=== PATIENT | male | born 1985 | race Caucasian/White ===

== ENCOUNTER 2018-05-22 09:27 | Emergency (ER) | payer BC ==
[2018-05-22 09:49] VITALS: BP 132/85
--- NOTE | 2018-05-22 10:44 | UC ---
Shoulder Pain HPI - HPI Summary HPI Summary: Pt presents with c/o right shoulder pain. 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 Pt states that yesterday that he slipped and grabbed door handle to truck and now has right shoulder pain. Pt states that he thinks that his right shoulder is "slipping again". - History of Current Complaint Chief Complaint: UCUpperExtremity Stated Complaint: RT SHOULDER PAIN Time Seen by Provider: 05/22/18 10:14 Hx Obtained From: Patient Onset/Duration: Sudden Onset, Lasting Days, Still Present Timing: Constant Severity Initially: Moderate Severity Currently: Moderate Location Of Pain: Is Discrete @ - right shoulder Pain Intensity: 6 Character: Dull, Aching Aggravating Factor(s): Movement Alleviating Factor(s): Nothing Associated Signs And Symptoms: Positive: Negative Related History: Dominant Hand Right, Other: - previous right shoulder surgery - Risk Factors Non-Orthopedic Risk Factor: Negative DVT Risk Factors: Negative Septic Arthritis Risk Factor: Negative - Allergies/Home Medications Allergies/Adverse Reactions: Allergies Allergy/AdvReac Type Severity Reaction Status Date / Time Tree Nuts Allergy Swelling Verified 05/22/18 09:45 Of Face,Lips,& Throat Home Medications: Home Medications NK [No Home Medications Reported] 05/22/18 [History Confirmed 05/22/18] PMH/Surg Hx/FS Hx/Imm Hx Previously Healthy: Yes - Surgical History Surgical History: Yes Surgery Procedure, Year, and Place: L5S1 Discecttomy, 2014, [place]; Right Shoulder, ~2002 - Family History Known Family History: Positive: Cardiac Disease - Social History Occupation: Employed Full-time Lives: With Family Alcohol Use: Daily Substance Use Type: None Smoking Status (MU): Former Smoker Length of Time of Smoking/Using Tobacco: 1 PPD x 7 Years Have You Smoked in the Last Year: No When Did the Patient Quit Smoking/Using Tobacco: ~2008 Review of Systems All Other Systems Reviewed And Are Negative: Yes Constitutional: Positive: Negative Skin: Positive: Negative Eyes: Positive: Negative ENT: Positive: Negative Respiratory: Positive: Negative Cardiovascular: Positive: Negative Gastrointestinal: Positive: Negative Genitourinary: Positive: Negative Motor: Positive: Decreased ROM - right shoulder Neurovascular: Positive: Negative Musculoskeletal: Positive: Arthralgia, Decreased ROM, Myalgia, Other: - generalized pain with movement. Neurological: Positive: Negative Psychological: Positive: Negative Is Patient Immunocompromised?: No Physical Exam - Summary Physical Exam Summary: Pt c/o generalized pain with movement, Additionally, right shoulder appeared to be lower than left. Pt not evaluated for scoliosis. Triage Information Reviewed: Yes Appearance: Pain Distress - with movement Vital Signs: Initial Vital Signs Temp 98.6 F 05/22/18 09:43 Pulse 98 05/22/18 09:43 Resp 18 05/22/18 09:43 BP 132/85 05/22/18 09:43 Pulse Ox 100 05/22/18 09:43 Vital Signs Reviewed: Yes Eye Exam: Normal ENT Exam: Normal Dental Exam: Normal Neck exam: Normal Respiratory: Positive: No respiratory distress Musculoskeletal: Positive: Strength Limited @, ROM Limited @ - right shoulder, c /o generalized pain Neurological Exam: Normal Psychological Exam: Normal Skin Exam: Normal Diagnostics - Laboratory Diagnostic Studies Completed/Ordered: Report: Negative for fracture. Multiple surgical anchors at the anterior margin of the. glenoid. Normal acromioclavicular and glenohumeral joint alignment. Negative for. glenohumeral joint space narrowing or other significant arthropathic change. Unremarkable. soft tissue contours. IMPRESSION: #. Negative exam. - Radiology No standard instances Radiology Interpretation Completed By: Radiologist - Report: Negative for fracture. Multiple surgical anchors at the anterior margin of the glenoid. Normal acromioclavicular and glenohumeral joint alignment. Negative for glenohumeral joint space narrowing or other significant arthropathic change. Unremarkable soft tissue contours. IMPRESSION: #. Negative exam. Shoulder Course/Dx - Differential Dx/Diagnosis Differential Diagnosis/HQI/PQRI: Bursitis, Sprain, Strain, Tendonitis Provider Diagnosis: Right shoulder pain Discharge - Sign-Out/Discharge Documenting (check all that apply): Patient Departure All imaging exams completed and their final reports reviewed: Yes - Discharge Plan Condition: Stable Disposition: HOME Patient Education Materials: Arthralgia (ED), Shoulder Pain (ED) Referrals: Kurt Frost MD [Primary Care Provider] - Jeremy Mcfarlane MD [Medical Doctor] - As Soon As Possible - Billing Disposition and Condition Condition: STABLE Disposition: Home
== END 2018-05-22 10:53 | disposition home or self-care (01) ==
LOC: UCCORT 09:27
DX: M25.511 Pain in right shoulder (principal); Z87.891 Personal history of nicotine dependence
CPT/HCPCS: 99201; G0463

== ENCOUNTER 2019-06-08 16:13 | Emergency (ER) | payer BC ==
[2019-06-08 16:47] VITALS: BP 125/80
--- NOTE | 2019-06-08 17:06 | UC ---
Neck Pain HPI - HPI Summary HPI Summary: Pt presents with worsening neck pain over the last 5 days. Pt denies any traumatic injury. Pt states that he has an 11 year history of patino and neck "problems" and had back surgery 5 years ago at [place]. Pt also c/o intermittent hand numbness. - History of Current Complaint Chief Complaint: UCBackPain Stated Complaint: NECK PAIN Time Seen by Provider: 06/08/19 16:38 Hx Obtained From: Patient Mechanism Of Injury: No Known Trauma Timing: Constant Onset/Duration: Gradual Onset, Lasting Days, Still Present, Worse Since - onset Severity: Severe Pain Intensity: 7 Location: Diffuse - neck Character: Dull, Aching, Stiff Aggravating Factors: Movement Alleviating Factors: Nothing Associated Signs & Symptoms: Positive: Headache - occasional Related History: Previous Neck Injury - Risk Factors Meningitis Risk Factors: Negative - Allergies/Home Medications Allergies/Adverse Reactions: Allergies Allergy/AdvReac Type Severity Reaction Status Date / Time Tree Nuts Allergy Swelling Verified 06/08/19 16:47 Of Face,Lips,& Throat PMH/Surg Hx/FS Hx/Imm Hx Previously Healthy: Yes - Surgical History Surgical History: Yes Surgery Procedure, Year, and Place: L5S1 Discecttomy, 2013, [place]; Right Shoulder, ~2002 - Family History Known Family History: Positive: Cardiac Disease - Social History Occupation: Employed Full-time Lives: With Family Alcohol Use: Daily Substance Use Type: None Smoking Status (MU): Former Smoker Length of Time of Smoking/Using Tobacco: 1 PPD x 7 Years Have You Smoked in the Last Year: No When Did the Patient Quit Smoking/Using Tobacco: ~2008 Review of Systems All Other Systems Reviewed And Are Negative: Yes Constitutional: Positive: Negative Skin: Positive: Negative Eyes: Positive: Negative ENT: Positive: Negative Respiratory: Positive: Negative Cardiovascular: Positive: Negative Gastrointestinal: Positive: Negative Genitourinary: Positive: Negative Motor: Positive: Decreased ROM - neck Neurovascular: Positive: Negative Musculoskeletal: Positive: Arthralgia, Decreased ROM, Myalgia Neurological: Positive: Negative Psychological: Positive: Negative Is Patient Immunocompromised?: No Physical Exam Triage Information Reviewed: Yes Appearance: Pain Distress Vital Signs: Initial Vital Signs Temp 98.1 F 06/08/19 16:40 Pulse 90 06/08/19 16:40 Resp 18 06/08/19 16:40 BP 125/80 06/08/19 16:40 Pulse Ox 99 06/08/19 16:40 Vital Signs Reviewed: Yes Eye Exam: Normal ENT: Positive: Hearing grossly normal Dental Exam: Normal Neck: Positive: Tenderness @ - C5-C7 Respiratory: Positive: No respiratory distress Musculoskeletal: Positive: ROM Limited @ - neck Neurological Exam: Normal Psychological Exam: Normal Skin Exam: Normal Diagnostics - Radiology No standard instances Radiology Interpretation Completed By: Radiologist - Mild facet arthopathy Neck Pain Course/Dx - Differential Dx/Diagnosis Differential Dx/HQI/PQRI: Arthritis, Sprain, Strain, Torticollis Provider Diagnosis: Cervical arthritis Discharge ED - Sign-Out/Discharge Documenting (check all that apply): Patient Departure All imaging exams completed and their final reports reviewed: Yes - Discharge Plan Condition: Stable Disposition: HOME Prescriptions: Cyclobenzaprine TAB* [Flexeril 10 MG TAB*] 10 mg PO Q8H PRN #21 tab PRN Reason: Pain - Mild Patient Education Materials: Cervical Strain (ED), Neck Pain (ED) Referrals: [facility] [place] [facility] [Outside] - As Soon As Possible Kurt Frost MD [Primary Care Provider] - Additional Instructions: Please follow up with your Neurosurgeon as soon as possible: Melvin Reed MD Neurosurgeon in [place], [place] Address: [address] [place] [address] - Billing Disposition and Condition Condition: STABLE Disposition: Home
== END 2019-06-08 17:50 | disposition home or self-care (01) ==
LOC: UCCORT 16:13
DX: M46.82 Other specified inflammatory spondylopathies, cervical region (principal); M47.892 Other spondylosis, cervical region; Z91.018 Allergy to other foods; Z87.891 Personal history of nicotine dependence
CPT/HCPCS: 72050; 99212; G0463